=== PATIENT | female | born 1975 | race Caucasian/White ===

== ENCOUNTER 2017-03-03 18:03 | Emergency (ER) | payer OTHER ==
[2017-03-03 19:22] LABS: BASOPHIL % 0.4 % (0-2)
[2017-03-03 19:23] LABS: PLATELET COUNT 459 x10^3mcL (130-400); RED CELL DISTRIBUTION WIDTH 17.7 % (11.5-14.5)
[2017-03-03 19:30] LABS: CALCIUM 8.6 mg/dL (8.5-10.1); CARBON DIOXIDE 25.8 mmol/L (21-32); CHLORIDE SERUM 106 mmol/L (98-107); CREATININE SERUM 0.8 mg/dL (0.6-1.0); GFR1 > 60 mL/min; GLUCOSE SERUM 117 mg/dL (74-106); SODIUM SERUM 140 mmol/L (136-145)
[2017-03-03 19:34] LABS: ALBUMIN 3.4 g/dL (3.4-5.0); ALKALINE PHOSPHATASE 80 U/L (46-116); ALT/SGPT 77 U/L (14-59); AST/SGOT 42 U/L (15-37); BILIRUBIN TOTAL 0.13 mg/dL (0.20-1.00); LIPASE 172 IU/L (73-393); TOTAL PROTEIN, SERUM 7.5 g/dL (6.4-8.2)
[2017-03-03 20:07] VITALS: BP 157/90
== END 2017-03-03 20:07 | disposition home or self-care (01) ==
LOC: ED 18:03
PROVIDERS: Emergency Medicine
DX: R07.89 Other chest pain (principal); R10.13 Epigastric pain
CPT/HCPCS: 36415; 83880; J1885; Q0092

== ENCOUNTER 2017-04-05 20:38 | Emergency (ER) | payer OTHER ==
[~2017-04-05] VITALS: Ht 162.6 cm; Wt 113.4 kg
[2017-04-05 23:33] VITALS: BP 137/75
== END 2017-04-05 23:33 | disposition home or self-care (01) ==
LOC: ED 20:38
DX: S16.1XXA Strain of muscle, fascia and tendon at neck level, initial encounter (principal); R51 Headache; R07.89 Other chest pain; M54.6 Pain in thoracic spine; G47.30 Sleep apnea, unspecified; Z86.79 Personal history of other diseases of the circulatory system; Z88.0 Allergy status to penicillin; V49.9XXA Car occupant (driver) (passenger) injured in unspecified traffic accident, initial encounter; Y93.89 Activity, other specified; Y99.8 Other external cause status; Y92.89 Other specified places as the place of occurrence of the external cause
CPT/HCPCS: 72072; J2270; Q0162

== ENCOUNTER 2018-03-01 22:29 | Emergency (ER) | payer OTHER ==
[~2018-03-01] VITALS: Ht 162.6 cm; Wt 117.9 kg
[2018-03-01 23:07] VITALS: Ht 162.6 cm; Wt 117.9 kg
[2018-03-02 04:12] VITALS: BP 134/72
== END 2018-03-02 04:12 | disposition home or self-care (01) ==
LOC: ED 22:29
DX: S39.012A Strain of muscle, fascia and tendon of lower back, initial encounter (principal); Z88.0 Allergy status to penicillin; W08.XXXA Fall from other furniture, initial encounter; Y93.89 Activity, other specified; Y92.89 Other specified places as the place of occurrence of the external cause; Y99.8 Other external cause status
CPT/HCPCS: J1885; J2270

== ENCOUNTER 2018-12-30 06:53 | Emergency (ER) | payer OTHER ==
[~2018-12-30] VITALS: Ht 162.6 cm; Wt 119.9 kg
[2018-12-30 07:03] VITALS: Ht 162.6 cm; Wt 119.9 kg
[2018-12-30 08:14] LABS: BASOPHIL % 1.6 % (0-2)
[2018-12-30 08:15] LABS: UA SPECIFIC GRAVITY 1.025 (1.005-1.035); microscopic required? YES; urine erythrocyte 3+ (NEGATIVE)
[2018-12-30 08:15] LABS: PLATELET COUNT 523 x10^3mcL (130-400); RED CELL DISTRIBUTION WIDTH 18.7 % (11.5-14.5)
[2018-12-30 11:47] VITALS: BP 136/99
== END 2018-12-30 11:47 | disposition home or self-care (01) ==
LOC: ED 06:53
PROVIDERS: Emergency Medicine
DX: N92.0 Excessive and frequent menstruation with regular cycle (principal); N39.0 Urinary tract infection, site not specified; D64.9 Anemia, unspecified; Z88.0 Allergy status to penicillin
CPT/HCPCS: 36415